=== PATIENT | female | born 1995 | race Caucasian/White ===

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

== ENCOUNTER 2017-01-04 13:50 | Emergency (ER) | payer MEDICAID ==
[2017-01-04] MEDS ORDERED: NORMAL SALINE 500 ML IV ONE ×2 (14:10→15:19)
[2017-01-04] MEDS ORDERED: METOCLOPRAMIDE HCL 5 MG/ML VIAL IV ONE (14:12)
[2017-01-04] MEDS ORDERED: BISACODYL 10 MG SUPP.RECT RC ONE ×2 (14:13→14:25)
--- NOTE | 2017-01-04 14:18 | ERNOTE ---
Medical Problem HPI - Narrative Date of Service: 01/04/17 - General Chief Complaint: Nausea/Vomiting Time Seen by Provider: 01/04/17 14:03 Source: patient - Immun/Allergies/Home Medications Immunizations: IMMUNIZATION HX Immunizations Up to Date Yes History of Influenza Vaccine No Hx Pneumococcal Vaccination No Allergies/Adverse Reactions: Allergies latex Allergy (Mild, Verified 12/20/16 16:08) Hives Home Medications: HOME MEDICATIONS Vit37/Iron/Folic Acid [Prenata Chewable Tablet] 2 each PO DAILY [Last Taken Unknown] Bisacodyl [Gentle Laxative] 10 mg RC TID #10 supp.rect 01/04/17 [Last Taken Unknown] Metoclopramide HCl [Reglan] 10 mg PO QID PRN #10 tab 01/04/17 [Last Taken Unknown] - History of Present History Narrative: 21 yo WF who is 6 weeks who is experiencing N&V, abdominal pain, no BM for 3 weeks. Seen in [place] 3 days ago and had US which they said demonstrated constipation. She was not given any instructions. She said she is hungry but each time she eats she starts developing nausea and stabbing abdominal pain. It feels like she has to have a BM but can't. Hasn't been able to eat but is voiding normally. Denies any fever/chills. Review of Systems - Review of Systems Constitutional: Present: no symptoms reported ENT: Present: no symptoms reported Respiratory: Present: no symptoms reported Cardiology: Present: no symptoms reported Genitourinary: Present: no symptoms reported Musculoskeletal: Present: no symptoms reported Neurological: Present: no symptoms reported - Patient's Past Medical History Patient History - Medical: Anxiety, Bipolar, Depression, Other Patient History - Cardiac/Respiratory: No pertinent hx Patient History - Cancer: No Hx of Cancer Patient History - Surgical Procedures: D & C, EGD Patient History - Other: None, Other - Had previous miscarriage followed by D&C - Family History Father Family History - Medical: No pertinent hx Family History - Cardiac/Respiratory: Asthma - Social History Abuse History: No History of abuse Psych History: Hx of Anxiety, Hx of Depression Smoking Status: Former smoker Patient requests Smoking Cessation Consult: No Initiate information on Smoking Cessation: No - Immunizations Immunizations Up to Date: Yes Hx Pneumococcal Vaccination: No History of Influenza Vaccine: No Physical Exam - Physical Exam General Appearance: Present: wd/wn, alert, no apparent distress Eye Exam: Normal inspection: bilateral, PERRL: bilateral, EOMI: bilateral Ears, Nose, Throat: Present: normal ENT inspection Neck: Present: normal inspection Respiratory: Present: no respiratory distress, normal breath sounds, chest nontender Cardiovascular/Chest: Present: regular rate, rhythm, no murmur Gastrointestinal/Abdominal: Present: nontender, soft, no organomegaly, abnormal bowel sounds - Occasional to rare. Absent: distended, guarding Extremity Exam: Present: normal inspection, non-tender, no edema Neurological Exam: Present: alert, oriented, no motor/sensory deficits, officer captain II- XII nml as tested ED Progress - Date and Time Seen: Date and Time: 01/04/17 15:47 Feeling better. Bladder scan did not show any urine. Receiving the second 500 cc of bolus. - Vital Signs Vital Signs: Vital Signs 01/04/17 13:54 Temperature 37.1 C Pulse Rate 66 Respiratory 16 Rate Blood Pressure 101/60 O2 Sat by Pulse 98 Oximetry - Progress/Reassessment Chief Complaint: Nausea/Vomiting Plan - Plan Plan: Liquid diet Force fluids Take colace 200 mg four times a day for 4 days. Take Mag Citrate 2 oz. three times a day for 4 days. Use ducolox suppositories twice a day for 4 days. Take reglan for three times a day for two days. Call PCP for follow up and if you don't have a BM in 48 hours. Departure Clinical Impression: Constipation, Hyperemesis arising during , Dehydration during - Departure Disposition: Home self-care Condition: Good Instructions: Eating Plan for Hyperemesis Gravidarum, Constipation, Adult, Easy -to-Read, Rehydration, Adult Additional Instructions: Take colace 200 mg four times a day for 4 days, Take magcitrate 2 oz. three times a day for 4 days. Take reglan 10 mg three times a day for 2 days. Take ducolox suppositories twice a day for 4 days. Follow up with PCP and report if you do not have BM within 48 horus. Referrals: Irene Carrillo ARNP [Primary Care Provider] - Prescriptions: Bisacodyl [Gentle Laxative] 10 mg RC TID #10 supp.rect Metoclopramide HCl [Reglan] 10 mg PO QID PRN #10 tab PRN Reason: Nausea And Vomiting
[2017-01-04] MEDS ORDERED: METOCLOPRAMIDE HCL 5 MG/ML VIAL ONE (14:25)
[2017-01-04 14:27] LABS: Hematocrit 34.6 % (37.0-47.0); Hemoglobin 12.1 gm/dL (12.5-16.0); Mean Corpuscular Hemoglobin 30.8 pg (27-31); Mean Platelet Volume 10.6 fl (6.0-9.5); Neutrophil # 5.5 K/mm3 (1.3-6.0); Neutrophil % 73.2 % (42-75.0); Platelet Count 230 K/mm3 (150-450); Red Blood Count 3.93 M/mm3 (4.2-5.4); Red Cell Distribution Width 11.8 % (11.5-14.0); White Blood Count 7.4 K/mm3 (4.0-10.5)
[2017-01-04 14:40] LABS: Albumin * 3.8 gm/dl (3.4-5.0); Anion Gap 14.4 mmol/L (6.8-13.8); BUN/Creatinine Ratio 9.9 (9.0-21.6); Bilirubin, Total 0.3 mg/dL (0.0-1.1); Ca. Corrected For Albumin 8.5 mg/dL (8.4-10.2); Calcium * 8.7 mg/dL (7.9-10.9); Potassium 3.4 mmol/L (3.4-4.6); Total Protein 7.2 gm/dL (6.2-8.2)
[2017-01-04] MEDS ORDERED: NORMAL SALINE 1,000 ML IV PRN (16:01)
[2017-01-04 16:34] LABS: Urine Appearance Slightly Cloudy; Urine Color Yellow
[2017-01-04 16:35] LABS: Urine Bacteria None Seen; Urine Bilirubin Negative (NEGATIVE); Urine Blood Negative /ul (NEGATIVE); Urine Ketone 15 mg/dL (NEGATIVE); Urine Nitrite Negative (NEGATIVE); Urine Protein Negative (NEGATIVE); Urine RBC None Seen /hpf (0-5); Urine Specific Gravity 1.015 SP.GR. (1.005-1.010); Urine Urobilinogen Normal (NORMAL); Urine WBC 0-5 /hpf (0-5)
[2017-01-04 17:14] VITALS: BP 95/59
== END 2017-01-04 17:05 | disposition home or self-care (01) ==
LOC: ER 13:50
DX: O21.1 Hyperemesis gravidarum with metabolic disturbance (principal); K59.00 Constipation, unspecified; Z87.891 Personal history of nicotine dependence; Z3A.01 Less than 8 weeks gestation of pregnancy